=== PATIENT | male | born 2000 | race Two or more races ===

== ENCOUNTER 2023-02-16 04:01 | Day surgery (SDC) | payer OTHER ==
[2023-02-14 14:49] VITALS: BMI 32.5
[2023-02-16] MEDS ORDERED: LIDOCAINE HCL 1%, 10 MG/ML (10ML VIAL) MDV ONE (07:17)
[2023-02-16] MEDS ORDERED: ceFAZolin SODIUM 1 GM VIAL ONE (08:01)
[2023-02-16] MEDS ORDERED: PROPOFOL 20 ML ONE (08:01)
[2023-02-16] MEDS ORDERED: MIDAZOLAM HCL 2 MG/2 ML SINGLE DOSE VIAL ONE ×2 (08:01→08:11)
[2023-02-16] MEDS ORDERED: ceFAZolin SODIUM 1 GM VIAL IVPB ONE (08:05)
[2023-02-16] MEDS ORDERED: LIDOCAINE HCL 1%, 10 MG/ML (20ML VIAL) INF ONE ×2 (08:13)
[2023-02-16] MEDS ORDERED: POVIDONE-IODINE OINTMENT 10% - 28.4 GM TUBE ONE (08:28)
[2023-02-16] MEDS ORDERED: POVIDONE-IODINE OINTMENT 10% - 28.4 GM TUBE TP ONE (08:30)
[2023-02-16 09:34] VITALS: BP 138/74; PULSE 64; RESP 20; TEMP 97
== END 2023-02-16 09:40 | disposition home or self-care (01) ==
LOC: JASU-SURG 04:01
PROVIDERS: ATTEND Surgery Vascular Surgery
PROC: 0K9Q0ZX Drainage of Right Upper Leg Muscle, Open Approach, Diagnostic (ICD-10-PCS; principal; 2023-02-16 08:00)
DX: M33.20 Polymyositis, organ involvement unspecified (principal)
CPT/HCPCS: 88300-TC

== ENCOUNTER 2023-04-20 04:12 | Emergency (ER) | payer OTHER ==
[2023-04-20 04:31] VITALS: BMI 32.5
[2023-04-20 06:34] VITALS: RESP 18; TEMP 98.6
[2023-04-20 08:28] VITALS: BP 126/64; PULSE 92
== END 2023-04-20 10:00 | disposition home or self-care (01) ==
LOC: FEVAL 04:12 → JER 04:12 → FEVAL 10:00
DX: R45.89 Other symptoms and signs involving emotional state (principal)
CPT/HCPCS: 99283-25